=== PATIENT | female | born 1975 | race African-American/Black ===

== ENCOUNTER 2016-12-17 13:50 | Emergency (ER) | payer MEDICAID, OTHER ==
[~2016-12-17] VITALS: Ht 162.6 cm; Wt 63.5 kg
[~2016-12-17 13:50] MED LIST: CEPHALEXIN500 MG ORAL; IBUPROFEN600 MG ORAL
[2016-12-17] MEDS ORDERED: IBUPROFEN600 MG ORAL (14:31)
--- NOTE | 2016-12-17 14:31 | Emergency Room Report ---
History of Present Illness General Chief Complaint: General Complaint Source: Patient Present Illness HPI 41 yo F with hx of asthma (not on any meds) pw L rib pain. pt states prior to arrival her 3 year old was playing and jumped onto her L side. no head trauma no loc. now c/o of pain to L side, worsened with deep inspiration however denies any SOB. denies any abd pain. denies taking any meds Allergies: Coded Allergies: No Known Allergies (Unverified , 05/25/13) Patient History Past Medical History: asthma Pertinent Family History: none Now: No Nursing Documentation-[facility] Past Medical History: No Stated History Hx Asthma: Yes Review of Systems Musculoskeletal: Reports: other - pain to L ribs All Other Systems: negative except mentioned in HPI Physical Exam Vital Signs Date Time Temp Pulse Resp B/P Pulse Ox O2 Delivery O2 Flow Rate FiO2 12/17/16 14:05 98.2 82 18 120/70 98 Room Air General Appearance: normal inspection, well appearing, no apparent distress, alert, GCS 15, non-toxic Head: normocephalic, atraumatic Eyes: bilateral eye EOMI, bilateral eye PERRL, bilateral eye normal inspection ENT: normal ENT inspection, normal pharynx, normal voice, moist mucus membranes Neck: normal inspection, full range of motion, supple, no bony tend Respiratory: normal inspection, lungs clear, normal breath sounds, no respiratory distress, no retraction, no wheezing, speaking full sentences, chest symmetrical Cardiovascular #1: normal inspection, regular rate, rhythm, no edema, normal capillary refill Gastrointestinal: normal inspection, non tender, soft, non-distended, no guarding Musculoskeletal: normal inspection, back normal, normal range of motion, other - TTP L 6/7/8 ribs. no gross bony abnormalities palpated. no ecchymosis Neurologic: normal inspection, alert, oriented x3, responsive, medical education specialist III-XII nml as tested, motor strength/tone normal, sensory intact, normal gait, speech normal Medical Decision Making Diagnostic Impression: Primary Impression: Rib pain on left side ER Course 41 yo f with L sided rib pain after her 3 year old daughter toppled onto her likely rib contusion r/o fx although less concerned given clinical exam rib XR, pain control, anticipate DC home XR films viewed, no acute rib fx appreciated. patient stable in ED, will dc home with pmd follow up. strict return prec given Last Vital Signs Date Time Temp Pulse Resp B/P Pulse Ox O2 Delivery O2 Flow Rate FiO2 12/17/16 14:05 98.2 82 18 120/70 98 Room Air Disposition: HOME, SELF-CARE Condition: Improved Scripts Ibuprofen* (MOTRIN*) 600 Mg Tablet 600 MG ORAL Q8H Y for For Pain, #30 TAB 0 Refills Prov: Gloria Pierre M.D. 12/17/16 Patient Instructions: Rib Contusion Additional Instructions: PLEASE FOLLOW UP WITH YOUR PRIMARY CARE DOCTOR WITHIN 1 WEEK Gloria Pierre M.D. Dec 17, 2016 14:31
[2016-12-17 14:47] VITALS: BP 120/70
[2016-12-17] MEDS ORDERED: IBUPR PO (15:46)
[2016-12-17 15:50] VITALS: BP 120/70
--- NOTE | 2016-12-17 16:12 | Diagnostic Imaging Report ---
Indication: Left-sided rib pain Technique: Multiple views of the left ribs Comparison: None Findings: No acute fractures. No evidence of pneumothorax. Normal heart size. Impression: Negative
== END 2016-12-17 15:51 | disposition home or self-care (01) ==
LOC: EMR 14:40
DX: R07.81 Pleurodynia (principal); J45.909 Unspecified asthma, uncomplicated
CPT/HCPCS: 81025; 99283

== ENCOUNTER 2018-05-17 10:51 | Emergency (ER) | payer MEDICAID, OTHER ==
[~2018-05-17] VITALS: Ht 162.6 cm; Wt 68.0 kg
[~2018-05-17 10:51] MED LIST changes: +IBUPR PO
[2018-05-17 10:55] VITALS: BP 112/75
[2018-05-17] MEDS ORDERED: NKM (10:58)
[2018-05-17] MEDS ORDERED: Sodium Chloride 500ML 500 ML IV ONE (11:09)
[2018-05-17] MEDS ORDERED: Mylanta II UD 30ml ORAL ONE (11:15)
[2018-05-17] MEDS ORDERED: Lidocaine 2% Visc 15ml soln ORAL ONE (11:15)
[2018-05-17] MEDS ORDERED: Dicyclomine HCl 10mg/5ml oral soln ORAL ONE (11:15)
--- NOTE | 2018-05-17 11:38 | NUR ---
ED Nurse Note: Pt. AAOx4. ambulatory. came in to ER due to abd pain on the lower quadrants X 3 days with nausea, vomiting and diarrhea. pt. c/o chronic back pain and chronic bilateral lower extremities pain. Chnaged pt. into a gown and attached to cardiac sonographer for continuous monitoring. VSS. No s/s of acute distress noted at this time.
--- NOTE | 2018-05-17 11:41 | NUR ---
ED Nurse Note: US at the bedside
--- NOTE | 2018-05-17 11:45 | Emergency Room Report ---
History of Present Illness General Chief Complaint: Abdominal Pain Source: Patient, Medical Record Present Illness HPI Patient is a 42-year-old female who presented after increased pelvic pain. Patient gradual onset of symptoms. Patient reports having prior history of chronic low back pain. She denies any weight loss. She reports having prior history of ovarian cyst. She states that she has been having increased difficulty with pain to her low back.Patient reports having increased discomfort with ambulation.patient reports having intermittent muscle spasms with low back . She denies any bowel or bladder dysfunction. Patient denies any vomiting. She reports having some increased dysuria. She denies being .Patient states that she has been having normal menses. She was previously advised to follow-up with gastroenterology as well as CHEF DE CUISINE but has not followed up. Allergies: Coded Allergies: No Known Allergies (Unverified , 05/25/13) Patient History Past Medical History: see triage record Last Menstrual Period: 05/10/18 Reviewed Nursing Documentation: PMH: Agreed; PSxH: Agreed Nursing Documentation-PMH Past Medical History: No History, Except For Hx Asthma: Yes Review of Systems All Other Systems: negative except mentioned in HPI Physical Exam Vital Signs Date Time Temp Pulse Resp B/P (MAP) Pulse Ox O2 Delivery O2 Flow Rate FiO2 05/17/18 10:55 85 16 Room Air 05/17/18 10:55 98.2 112/75 98 Sp02 EP Interpretation: reviewed, normal General Appearance: normal inspection, well appearing, no apparent distress, alert, GCS 15 Head: atraumatic ENT: normal ENT inspection, hearing grossly normal, normal voice Neck: normal inspection, full range of motion, supple, no bony tend Respiratory: normal inspection, lungs clear, normal breath sounds, no respiratory distress, no retraction, no wheezing Cardiovascular #1: regular rate, rhythm, no edema Gastrointestinal: normal inspection, normal bowel sounds, non tender, soft, no guarding, no hernia Genitourinary: no CVA tenderness Musculoskeletal: normal inspection, back normal, normal range of motion Neurologic: normal inspection, alert, oriented x3, responsive, poultry buyer III-XII nml as tested, motor strength/tone normal, speech normal Psychiatric: normal inspection, judgement/insight normal, mood/affect normal Skin: normal inspection, normal color, no rash Medical Decision Making Diagnostic Impression: Primary Impression: Fibroids Additional Impression: Nonspecific abdominal pain ER Course Patient presented for abdominal pain. Differential diagnoses included ischemic bowel, appendicitis, perforated viscus, abdominal aortic aneurysm, inferior myocardial infarction, viral gastroenteritis. Because of complexity of patient' s case laboratory testing and imaging studies were ordered. Patient's laboratory testing was unremarkable. Patient is a negative urine test. Pelvic ultrasound showed no evidence of ovarian torsion or dominant cyst. There is no free fluid noted. The patient is advised to follow up with primary care doctor in 1-2 days. Patient was advised that she may need a OB/ [facility] referral. Patient is advised to return if any worsening condition or if any changes in status that are concerning. This report is dictated with [employer] weight shifter software which may occasionally lead to discrepancies related to use of this software. Labs Test 05/17/18 11:00 05/17/18 11:25 White Blood Count 7.6 K/UL (4.8-10.8) Red Blood Count 4.22 M/UL (4.20-5.40) Hemoglobin 13.0 G/DL (12.0-16.0) Hematocrit 39.7 % (37.0-47.0) Mean Corpuscular Volume 94 FL (80-99) Mean Corpuscular Hemoglobin 30.7 PG (27.0-31.0) Mean Corpuscular Hemoglobin Concent 32.6 G/DL (32.0-36.0) Red Cell Distribution Width 12.3 % (11.6-14.8) Platelet Count 313 K/UL (150-450) Mean Platelet Volume 7.1 FL (6.5-10.1) Neutrophils (%) (Auto) 57.4 % (45.0-75.0) Lymphocytes (%) (Auto) 33.3 % (20.0-45.0) Monocytes (%) (Auto) 7.8 % (1.0-10.0) Eosinophils (%) (Auto) 0.4 % (0.0-3.0) Basophils (%) (Auto) 1.0 % (0.0-2.0) Prothrombin Time 10.0 SEC (9.30-11.50) Prothromb Time International Ratio 0.9 (0.9-1.1) Activated Partial Thromboplast Time 30 SEC (23-33) Sodium Level 139 MMOL/L (136-145) Potassium Level 3.8 MMOL/L (3.5-5.1) Chloride Level 103 MMOL/L (98-107) Carbon Dioxide Level 27 MMOL/L (21-32) Anion Gap 9 mmol/L (5-15) Blood Urea Nitrogen 8 mg/dL (7-18) Creatinine 0.8 MG/DL (0.55-1.30) Estimat Glomerular Filtration Rate > 60 mL/min (>60) Glucose Level 88 MG/DL (74-106) Calcium Level 8.9 MG/DL (8.5-10.1) Total Bilirubin 0.3 MG/DL (0.2-1.0) Aspartate Amino Transf (AST/SGOT) 15 U/L (15-37) Alanine Aminotransferase (ALT/SGPT) 10 U/L (12-78) Alkaline Phosphatase 39 U/L (46-116) Total Protein 6.9 G/DL (6.4-8.2) Albumin 3.7 G/DL (3.4-5.0) Globulin 3.2 g/dL Albumin/Globulin Ratio 1.2 (1.0-2.7) Lipase 75 U/L (73-393) Urine Color Pale yellow Urine Appearance Clear Urine pH 7 (4.5-8.0) Urine Specific [place] 1.005 (1.005-1.035) Urine Protein Negative (NEGATIVE) Urine Glucose (UA) Negative (NEGATIVE) Urine Ketones Negative (NEGATIVE) Urine Blood Negative (NEGATIVE) Urine Nitrite Negative (NEGATIVE) Urine Bilirubin Negative (NEGATIVE) Urine Urobilinogen Normal MG/DL (0.0-1.0) Urine Leukocyte Esterase 1+ (NEGATIVE) Urine RBC 0 /HPF (0 - 2) Urine WBC 0-2 /HPF (0 - 2) Urine Squamous Epithelial Cells Occasional /LPF Urine Bacteria Occasional /HPF (NONE) Urine HCG, Qualitative Negative (NEGATIVE) Last Vital Signs Date Time Temp Pulse Resp B/P (MAP) Pulse Ox O2 Delivery O2 Flow Rate FiO2 05/17/18 10:55 98.2 85 16 112/75 98 Room Air Status: improved Disposition: HOME, SELF-CARE Condition: Stable Scripts Ondansetron* (ZOFRAN*) 4 Mg Tablet 4 MG ORAL Q6H PRN for Nausea & Vomiting, #14 TAB Prov: Jan Darden MD 05/17/18 Dicyclomine Hcl* (DICYCLOMINE HCL*) 10 Mg Capsule 10 MG PO QID, #20 CAP Prov: Jan Darden MD 05/17/18 Hydrocodone Bit/Acetaminophen 5-325* (NORCO 5-325*) 1 Each Tablet 1 TAB ORAL Q6H PRN for For Pain, #10 TAB 0 Refills Prov: Jan Darden MD 05/17/18 Referrals: [facility],REFERRING (PCP) Jan Darden MD May 17, 2018 11:45
[2018-05-17 11:56] LABS: ANION GAP 9 mmol/L (5-15); BLOOD UREA NITROGEN 8 mg/dL (7-18); CALCIUM 8.9 MG/DL (8.5-10.1); CARBON DIOXIDE 27 MMOL/L (21-32); CHLORIDE 103 MMOL/L (98-107); CREATININE 0.8 MG/DL (0.55-1.30); POTASSIUM 3.8 MMOL/L (3.5-5.1); SODIUM 139 MMOL/L (136-145)
[2018-05-17 12:00] LABS: ALANINE AMINOTRANSFERASE 10 U/L (12-78); ALBUMIN 3.7 G/DL (3.4-5.0); ALBUMIN/GLOBULIN RATIO 1.2 (1.0-2.7); ALKALINE PHOSPHATASE 39 U/L (46-116); ASPARTATE AMINO TRANSFERASE 15 U/L (15-37); BILIRUBIN,TOTAL 0.3 MG/DL (0.2-1.0)
[2018-05-17 12:12] LABS: EOSINOPHILS % (AUTO) 0.4 % (0.0-3.0); HEMATOCRIT 39.7 % (37.0-47.0); LYMPHOCYTES % (AUTO) 33.3 % (20.0-45.0); MEAN CORPUSCULAR VOLUME 94 FL (80-99); MONOCYTES % (AUTO) 7.8 % (1.0-10.0); NEUTROPHILS % (AUTO) 57.4 % (45.0-75.0); PLATELET COUNT 313 K/UL (150-450); RED BLOOD COUNT 4.22 M/UL (4.20-5.40); RED CELL DISTRIBUTION WIDTH 12.3 % (11.6-14.8); WHITE BLOOD COUNT 7.6 K/UL (4.8-10.8)
[2018-05-17 12:15] LABS: INR 0.9 (0.9-1.1)
[2018-05-17 12:41] VITALS: BP 121/74
[2018-05-17 12:41] LABS: APPEARANCE,URINE CLEAR; BILIRUBIN, URINE NEGATIVE (NEGATIVE); COLOR,URINE PALE YELLOW; GLUCOSE, URINE (UA) NEGATIVE (NEGATIVE); KETONES,URINE NEGATIVE (NEGATIVE); LEUKOCYTE ESTERASE ,URINE 1+ (NEGATIVE); NITRITE,URINE NEGATIVE (NEGATIVE); PH,URINE 7 (4.5-8.0); PROTEIN,URINE NEGATIVE (NEGATIVE); UROBILINOGEN,URINE NORMAL MG/DL (0.0-1.0)
--- NOTE | 2018-05-17 13:05 | Diagnostic Imaging Report ---
INDICATION: Abdominal pain TECHNIQUE: Real-time sonographic evaluation of the pelvis is performed in transverse and longitudinal projections. Both trans-abdominal and endovaginal techniques are utilized. COMPARISON: None FINDINGS: A negative test is reported. The uterus is normal in size, it measures 11 x 5.6 x 5.9 cm. The endometrium is prominent in thickness at 12 mm. The right ovary measures 4 x 1.4 x 1.4 cm and the left ovary measure 3.7 x 2.2 x 3.2 cm. A 2.1 x 1.3 cm left adnexal hypoechoic lesion is seen with slight internal nodule flow (image 62 series 1). No free fluid. IMPRESSION: 1. 2.1 x 1.3 similar left adnexal hypoechoic lesion is seen with slight internal nodularity and flow, correlation can be obtained with gynecologic consult and MRI of the female pelvis for further evaluation. 2. Slightly prominent endometrium at 12 mm, may be related to phase of menstrual cycle.
[2018-05-17 13:14] VITALS: BP 114/79
[2018-05-17] MEDS ORDERED: DICYCLOMINE HCL10 MG PO (13:35)
[2018-05-17] MEDS ORDERED: NORCO 5-325 TA1 EACH ORAL (13:35)
[2018-05-17] MEDS ORDERED: ZOFRAN4 M3 ORAL (13:50)
[2018-05-17 14:00] VITALS: BP 114/79
[2018-05-17] MEDS ORDERED: Acetaminophen 500mg (ES) tab ORAL ONE (14:00)
--- NOTE | 2018-05-17 14:00 | NUR ---
ED Nurse Note: Pt is clear to be discharged by ERMD. Discharge paper and prescription given, pt verbalized understanding of dicharge instruction. Aox4, VSS. Wristband and IV line removed. Pt ambulated out with steady agait with all belongings.
== END 2018-05-17 14:00 | disposition home or self-care (01) ==
LOC: EMR 11:04
DX: D25.9 Leiomyoma of uterus, unspecified (principal); R10.9 Unspecified abdominal pain
CPT/HCPCS: 36415; 76830; 76856; 80053; 81003; 81025; 83690; 85025; 85610; 85730; 86850; 86900; 86901; 96374; 99284; J2405; J7040

== ENCOUNTER 2019-07-01 09:16 | Emergency (ER) | payer MEDICAID ==
[~2019-07-01] VITALS: Ht 162.6 cm; Wt 73.0 kg
[~2019-07-01 09:16] MED LIST changes: +DICYCLOMINE HCL10 MG PO; +NKM; +NORCO 5-325 TA1 EACH ORAL; +ZOFRAN4 M3 ORAL
[2019-07-01 09:43] VITALS: BP 130/80
--- NOTE | 2019-07-01 09:44 | NUR ---
ED Nurse Note:pt. c/o sore throat ,VS stable seen by ER MD
[2019-07-01] MEDS ORDERED: IBUPROFEN600 MG ORAL (10:39)
[2019-07-01] MEDS ORDERED: ACETAMINOPHEN-1 EAC1 ORAL (10:39)
[2019-07-01] MEDS ORDERED: Ketorolac 60mg Inj IM ONE (10:45)
--- NOTE | 2019-07-01 10:50 | Emergency Room Report ---
History of Present Illness General Chief Complaint: Sore Throat Source: Patient Present Illness HPI Patient presents with complaints of sore throat and pain with swallowing reports that earlier today she had noticed increased swelling in the lower part of her jaw as well which has resolved Denies any chest pain or shortness of breath denies any change with her voice patient's younger daughter was also sick with URI symptoms recently Denies any posterior neck pain denies any rash Patient had also complained of back discomfort to triage however it did not complain of that to me after reviewing the triage report I did ask regarding her low back discomfort and patient reports that She does a lot of, physical exertion at work also 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 and feels that this is exacerbating her chronic back pain Allergies: Coded Allergies: No Known Allergies (Unverified , 05/25/13) Patient History Past Medical History: see triage record Last Menstrual Period: LAST MONTH Reviewed Nursing Documentation: PMH: Agreed; PSxH: Agreed Nursing Documentation-PMH Hx Asthma: Yes Review of Systems All Other Systems: negative except mentioned in HPI Physical Exam Vital Signs Date Time Temp Pulse Resp B/P (MAP) Pulse Ox O2 Delivery O2 Flow Rate FiO2 07/01/19 09:26 98.8 77 18 130/80 (97) 98 Room Air Sp02 EP Interpretation: reviewed, normal General Appearance: well appearing, no apparent distress Head: normocephalic, atraumatic Eyes: bilateral eye PERRL, bilateral eye EOMI ENT: hearing grossly normal, TMs + canals normal, uvula midline, pharyngeal erythema Neck: full range of motion, supple, no meningismus, no bony tend Respiratory: lungs clear, normal breath sounds, no rhonchi, no respiratory distress, no retraction, no accessory muscle use Cardiovascular #1: normal peripheral pulses, regular rate, rhythm, no edema, no gallop, no JVD, no murmur Gastrointestinal: normal bowel sounds, non tender, soft, no mass, no organomegaly, non-distended, no guarding, no hernia, no pulsatile mass, no rebound Genitourinary: no CVA tenderness Musculoskeletal: other - Patient ambulatory no obvious focal deficit no midline deficits however points objectively to the right posterior superior iliac crest for discomfort Neurologic: motor strength/tone normal, chemical checker III-XII nml as tested, oriented x3 , sensory intact, responsive Psychiatric: mood/affect normal Skin: no rash Lymphatic: normal inspection, no adenopathy Medical Decision Making Diagnostic Impression: Primary Impression: pharyngitis ER Course Multiple differentials and consideration given the exam and the findings patient does have findings consistent with pharyngitis Given the discomfort and presentation antibiotics are provided Review of medical records reveals abnormal ultrasound approximately 1 year ago patient reports that she has not had follow-up with this I feel that given some of the abnormal findings close Gynecological follow-up is important Patient is provided a copy of this report and will follow closely Last Vital Signs Date Time Temp Pulse Resp B/P (MAP) Pulse Ox O2 Delivery O2 Flow Rate FiO2 07/01/19 09:43 98.8 69 18 130/80 98 Room Air Status: improved Disposition: HOME, SELF-CARE Condition: Improved Scripts Acetaminophen With Codeine (T#3) (TYLENOL #3 TAB*) Y Tab 1 TAB ORAL Q8H PRN for For Pain, #10 TAB Prov: Miryam Appiah DO 07/01/19 Ibuprofen* (MOTRIN*) 600 Mg Tablet 600 MG ORAL Q8H PRN for For Pain, #20 TAB 0 Refills Prov: Miryam Appiah DO 07/01/19 Referrals: [facility],REFERRING (PCP) [facility] Patient Instructions: Pharyngitis, [id number] Additional Instructions: In addition to the throat evaluation review of your ultrasound from previous does show abnormality. This was discussed with you a copy of the report has been provided and improved outpatient follow-up is required Patient is provided with the discharge instructions notified to follow up with primary doctor in the next 2-3 days otherwise return to the er with any worsening symptoms. Please note that this report is being documented using [employer] technology. This can lead to erroneous entry secondary to incorrect interpretation by the dictating instrument. Miryam Appiah DO Jul 01, 2019 10:49
--- NOTE | 2019-07-01 10:52 | NUR ---
ER DISCHARGE NOTE: Patient is cleared to be discharged per ERMD, pt is aox4, on room air, with stable vital signs. pt was given dc and prescription instructions, pt was able to verbalize understanding, pt i pt is able to ambulate with steady gait. pt took all belongings.
[2019-07-01 10:53] VITALS: BP 130/80
== END 2019-07-01 10:57 | disposition home or self-care (01) ==
LOC: EMR 09:40
DX: J02.9 Acute pharyngitis, unspecified (principal); J45.909 Unspecified asthma, uncomplicated
CPT/HCPCS: 96372; Z7502; 99283

== ENCOUNTER 2019-07-05 16:32 | Emergency (ER) | payer MEDICAID ==
[~2019-07-05] VITALS: Ht 162.6 cm; Wt 73.0 kg
[~2019-07-05 16:32] MED LIST changes: +ACETAMINOPHEN-1 EAC1 ORAL
--- NOTE | 2019-07-05 17:30 | NUR ---
ED Nurse Note: Pt walked into ED w/ c/o bruise R arm. Pt was in ED a few days ago and got toradol shot on R arm. Pt states she's had numbness/tingling on R arm and on R leg. Lump on R arm is indurated. PA has seen patient. Pt is alert and orientedx4, ambulatory.
[2019-07-05 17:32] VITALS: BP 142/87
[2019-07-05] MEDS ORDERED: IBUPROFEN600 MG ORAL (17:34)
[2019-07-05] MEDS ORDERED: PREDNISONE20 MG ORAL (17:34)
[2019-07-05] MEDS ORDERED: ROBAXIN-500MG ORAL (17:34)
--- NOTE | 2019-07-05 17:34 | Emergency Room Report ---
History of Present Illness General Chief Complaint: Upper Extremity Injury Present Illness HPI 43-year-old female with no significant past medical history here complaining of right arm pain and right leg pain after getting a Toradol injection here at [facility] 5 days ago the same arm. Minimal bruising noted. Patient has full range of motion of the arm and leg, no impingement sign noted. Uppercase, difficulty breathing swallowing. Has not taken medication for symptom relief. Sitting comfortably with stable vital signs. Denies any fall or injury. Denies at this time. Allergies: Coded Allergies: No Known Allergies (Unverified , 05/25/13) Patient History Past Medical History: see triage record Past Surgical History: none Pertinent Family History: none Last Menstrual Period: 06/05/2019 Now: No Immunizations: UTD Reviewed Nursing Documentation: PMH: Agreed; PSxH: Agreed Nursing Documentation-PMH Hx Asthma: Yes Review of Systems All Other Systems: negative except mentioned in HPI Physical Exam Vital Signs Date Time Temp Pulse Resp B/P (MAP) Pulse Ox O2 Delivery O2 Flow Rate FiO2 07/05/19 17:00 98.2 73 18 150/92 (111) 98 Room Air Sp02 EP Interpretation: reviewed, normal General Appearance: no apparent distress, alert, GCS 15, non-toxic Head: normocephalic, atraumatic Eyes: bilateral eye normal inspection, bilateral eye PERRL ENT: hearing grossly normal, normal pharynx, no angioedema, normal voice Neck: full range of motion, supple/symm/no masses Respiratory: chest non-tender, lungs clear, normal breath sounds, no rhonchi, no respiratory distress, no retraction, no accessory muscle use, speaking full sentences Cardiovascular #1: regular rate, rhythm, no edema, no murmur Cardiovascular #2: 2+ radial (R), 2+ radial (L), 2+ dorsalis pedis (R), 2+ dorsalis pedis (L) Gastrointestinal: normal bowel sounds, non tender, soft, non-distended, no guarding, no rebound Rectal: deferred Genitourinary: no CVA tenderness Musculoskeletal: back normal, normal range of motion, digits/nails normal, no calf tenderness, non-tender Neurologic: alert, motor strength/tone normal, oriented x3, sensory intact, responsive, speech normal Psychiatric: judgement/insight normal, memory normal, mood/affect normal, no suicidal/homicidal ideation Skin: no rash Lymphatic: no adenopathy Medical Decision Making PA Attestation All my diagnosis and treatment plans were reviewed ad discussed with my supervising physician Dr. Agrawal Diagnostic Impression: Primary Impression: Allergic reaction caused by a drug Additional Impression: Muscle spasm ER Course 43-year-old female with no significant past medical history here complaining of right arm pain and right leg pain after getting a Toradol injection here at [facility] 5 days ago the same arm. Minimal bruising noted. Patient has full range of motion of the arm and leg, no impingement sign noted. Uppercase, difficulty breathing swallowing. Has not taken medication for symptom relief. Sitting comfortably with stable vital signs. Denies any fall or injury. Denies at this time. Ddx considered but are not limited to : Shoulder sprain versus strain, anaphylaxis, allergic reaction localized to the drug, muscle spasm Vital signs: are WNL, pt. is afebrile H&PE are most consistent with: Muscle spasm secondary to allergic reaction to injection site ORDERS: Shoulder x-ray, prednisone, Motrin, Robaxin ED INTERVENTIONS: None DISCHARGE: At this time pt. is stable for d/c to home. Will provide printed patient care instructions, and any necessary prescriptions. Care plan and follow up instructions have been discussed with the patient prior to discharge. Patient to follow primary care provider, if anaphylaxis, difficulty breathing or swallowing return to the emergency room Other X-Ray Diagnostic Results Other X-Ray Diagnostic Results : X-Ray ordered: Right shoulder # of Views/Limited Vs Complete: 3 View Indication: Pain EP Interpretation: Yes PA Xray: Interpretation reviewed, by supervising MD, and agrees with findings. Interpretation: no dislocation, no soft tissue swelling, no fractures Impression: No acute disease Electronically Signed by: Shirley Murrell PA-C Last Vital Signs Date Time Temp Pulse Resp B/P (MAP) Pulse Ox O2 Delivery O2 Flow Rate FiO2 07/05/19 17:00 98.2 73 18 150/92 (111) 98 Room Air Disposition: HOME, SELF-CARE Condition: Stable Scripts Ibuprofen* (MOTRIN*) 600 Mg Tablet 600 MG ORAL Q8H PRN for For Pain, #30 TAB 0 Refills Prov: Shirley Ellington 07/05/19 Methocarbamol* (ROBAXIN-500*) 500 Mg Tablet 500 MG ORAL TID PRN for For Pain, #15 TAB 0 Refills Prov: Shirley Ellington 07/05/19 Prednisone* (PREDNISONE*) 20 Mg Tablet 40 MG ORAL DAILY for 5 Days, #10 TAB Prov: Shirley Ellington 07/05/19 Patient Instructions: Allergies, [id number], Muscle Cramps and Spasms, Easy- to-Read Additional Instructions: Take medication as directed, follow-up with your primary care provider, if difficulty breathing and swallowing return to the emergency room avoid strenuous physical activity with affected side. Shirley Ellington Jul 05, 2019 17:33
--- NOTE | 2019-07-05 17:50 | NUR ---
ER DISCHARGE NOTE: Patient is cleared to be discharged per ERMD, pt is aox4, on room air, with stable vital signs. pt was given dc and prescription instructions, pt was able to verbalize understanding, pt id band removed. pt is able to ambulate with steady gait. pt took all belongings.
[2019-07-05 18:05] VITALS: BP 134/82
--- NOTE | 2019-07-06 12:47 | Diagnostic Imaging Report ---
Indication: Right shoulder pain COMPARISON: None Findings: 3 views of the right shoulder were obtained. No acute fractures, malalignment, erosions or periostitis are identified. Soft tissues are unremarkable. Impression: Negative for acute injury
== END 2019-07-05 18:05 | disposition home or self-care (01) ==
LOC: EMR 16:45
DX: M62.838 Other muscle spasm (principal); T78.40XA Allergy, unspecified, initial encounter; X58.XXXA Exposure to other specified factors, initial encounter
CPT/HCPCS: 73030; Z7502; 99283